=== PATIENT | female | born 1950 | race Caucasian/White ===

== ENCOUNTER 2023-05-09 10:26 | Inpatient (IN) | payer MEDICARE, MEDICAID, SELFPAY ==
[2023-04-21 11:44] VITALS: BMI 25.2
[2023-05-09 11:25] VITALS: BP 168/86; PULSE 82; RESP 16; TEMP 37.6; O2SAT 95; BMI 25.2
[2023-05-09] MEDS: LACTATED RINGERS 1,000 ML 42 ML IV (12:00)
[2023-05-09] MEDS: ACETAMINOPHEN 325 MG TABLET 650 MG PO (12:03)
[2023-05-09] MEDS: FAMOTIDINE 20 MG/2 ML VIAL IV (12:04)
[2023-05-09] MEDS: PREGABALIN 75 MG CAPSULE PO (12:04)
[2023-05-09] MEDS: ALBUTEROL 2.5 MG/3 ML NEB (ADULT) INH (12:18)
--- NOTE | 2023-05-09 12:33 | PM.PN.1 ---
Subjective Subjective Date Patient Seen: 05/09/23 Time Patient Seen: 12:00 Interval history: Pt arrived for L3-4,4-5 TLIF. Pt had a preoperative anesthesia consult, revealing she had severe/prolonged/Covid, with prolonged hospital admission from 12/25/2020-03/22/2021 with prolonged intubation and ARF requiring dialysis. She required an IVC filter. 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 Pt arrived today with RA SaO2 95%. She states that she has become more short of breath with just walking around apartment or to get mail over the past 5 months. She complains of severe shoulder and apparent skeletal chest pain, in addition to her back pain. Pt last used mushrooms 1 month ago, last used meth 4 days ago, and last used MJ 2 days ago. Pt appears sedated today with drifting off to sleep during evaluation. She denies any drug use today. She states she is still having difficulty with living situation even though apartment has been treated for black mold. Exam Vital Signs (past 8 hours): - 05/09/23 11:25 Temperature 99.7 F H Pulse Rate 82 Respiratory Rate 16 Blood Pressure 168/86 H Pulse Oximetry 95 Oxygen Delivery Method Room Air Oxygen Delivery Method Room Air Resp Other: \shallow respirations. Breaths taken in middle of sentence while speaking, as though SOB. Few squeaks, no obvious wheezes Cardio Other: regular irregular rhythm with III/ systolic murmur. No bruits [facility] Medical History (Updated 05/09/23 @ 12:58 by Jess Lawrence MD) A-fib (2020) History of prediabetes HLD (hyperlipidemia) Erosive esophagitis Iron deficiency anemia Hx of bipolar disorder DVT (deep venous thrombosis) (~12/2020) Difficult intravenous access Headache Depression Anxiety PTSD (post-traumatic stress disorder) Easy bruisability History of GI bleed (2021) GERD (gastroesophageal reflux disease) COPD (chronic obstructive pulmonary disease) Asthma Hearing impaired Neuropathy Fibromyalgia Pneumonia (08/2013) History of COVID-19 (2020) Surgical History (Updated 04/21/23 @ 12:17 by Shayy A Bear, RN) Hx of foot surgery (2004) Hx of tonsillectomy Hx of tubal ligation Social History household members: none Smoking Status: Never smoker alcohol intake: current Assessment & Plan Assessment and plan (1) SOB (shortness of breath) on exertion: Status: Acute Plan Delay operation to allow for updated cardiac evaluation and medical optimization Assessment & Plan narrative: Pt has had deterioration since last ECHO of 01/29/21. Recommend delay operation to allow updated ECHO to be obtained, as well as cardiology consult. This was discussed with Dr. Gee by both myself and Dr. Rader (she also did an evaluation of the patient) Also, continue to improve ferritin level with continuing to take iron. Hopefully, her living situation will stabilize with her caregiver involved. Time Spent With Patient Time with patient: 30 to 49 minutes with 50% spent counseling/coordinating care
--- NOTE | 2023-05-09 12:44 | SUR.PREOP ---
Surgery canceled. Called patient's ride. Left message.
--- NOTE | 2023-05-09 12:59 | PM.PREOP ---
Pre-operative Note Interval Note History & Physical reviewed/Exam performed by Physician: No Changes to H&P: No
--- NOTE | 2023-05-09 13:05 | P.PN_ITS ---
Exam Vital Signs (past 8 hours): - 05/09/23 11:25 Temperature 99.7 F H Pulse Rate 82 Respiratory Rate 16 Blood Pressure 168/86 H Pulse Oximetry 95 Oxygen Delivery Method Room Air Oxygen Delivery Method Room Air [facility] Medical History (Updated 05/09/23 @ 12:58 by Jess Lawrence MD) A-fib (2020) History of prediabetes HLD (hyperlipidemia) Erosive esophagitis Iron deficiency anemia Hx of bipolar disorder DVT (deep venous thrombosis) (~12/2020) Difficult intravenous access Headache Depression Anxiety PTSD (post-traumatic stress disorder) Easy bruisability History of GI bleed (2021) GERD (gastroesophageal reflux disease) COPD (chronic obstructive pulmonary disease) Asthma Hearing impaired Neuropathy Fibromyalgia Pneumonia (08/2013) History of COVID-19 (2020) Surgical History (Updated 04/21/23 @ 12:17 by Shayy Mary RN) Hx of foot surgery (2004) Hx of tonsillectomy Hx of tubal ligation Social History household members: none Smoking Status: Never smoker alcohol intake: current Assessment & Plan Assessment & Plan narrative: Patient's surgery is cancelled today per anesthesia's recommendation due to lack of recent cardiac assessment (history of pulmonary hypertension). I discussed with patient the recommendation for cardiac assessment with updated cardiac echo. I will have my MA facilitate with patient's cardiac consult.
--- NOTE | 2023-05-09 16:59 | SUR.PREOP ---
Pt discharged to home after surgery cancelled by anesthesia. Pt slept entire day while waiting for medical transport. Lunch brought to patient who stated she was hungry but did not eat anything except when fed a few bites from this RN. Pt DC via medical transport. Pt to bathroom, able to transfer self to toilet, void and wipe and transfer back to wheelchair independently. Pt taken in WC to van where she walked 4 steps to the seat in the van. Prior to DC spoke with [place] caregiver who brought her in the this morning. She confirmed that yes, patient could discharge home by herself, that she did have the keys and was slow but could walk herself into her apartment. This is what the patient had told me also. [facility] stated they did not have someone to meet her and she could be discharged home. Medical transport stated they would get her the walker that was in her apartment for her when they arrived. Spoke with ostomy care nurse Nicky on the phone and updated her that surgery was cancelled, that she would need a cardiology consult and new echocardiogram and that she had reported using meth last on 05/05 that patient presented as having used meth more recently. This RN informed patient that this was contraindicated for surgery and in the future surgery could be cancelled if patient has used meth recently.
== END 2023-05-09 20:42 | disposition home or self-care (01) | DRG 552 ==
PROVIDERS: Admitting Provider Orthopaedic Surgery Orthopaedic Surgery of the Spine; PCP Family Medicine; Referring Provider Orthopaedic Surgery Orthopaedic Surgery of the Spine; Visit Provider Orthopaedic Surgery Orthopaedic Surgery of the Spine
DX: M48.062 Spinal stenosis, lumbar region with neurogenic claudication (principal); R06.02 Shortness of breath; M43.16 Spondylolisthesis, lumbar region; M47.27 Other spondylosis with radiculopathy, lumbosacral region; M41.55 Other secondary scoliosis, thoracolumbar region; Z86.79 Personal history of other diseases of the circulatory system; Z53.8 Procedure and treatment not carried out for other reasons
CPT/HCPCS: 36415; 82962; 86850; 86900; 86901; J7613